=== PATIENT | male | born 1940 | race Caucasian/White ===

== ENCOUNTER 2016-09-14 12:20 | Inpatient (IN) | payer MEDICARE, OTHER ==
[~2016-09-14] VITALS: Ht 175.3 cm; Wt 86.6 kg
[~2016-09-14 12:20] MED LIST: AMIO200T PO; BLOO-129 IN; CARV12.52 PO; CHOL4PAC4 PO; ESCI10TA PO; FINA5TAB11 PO; FURO40TA5 PO; GLIM1TAB2 PO; HYDR-548 PO; LACT10SO PO; METO2.5T2 PO; METR500T PO; MODA200T30 PO; SPIR100T3 PO; TAMS0.4C34 PO; TENO300T2 PO; TRAM50TA2 PO; VANC125C11 PO
[2016-09-14 12:42] LABS: BASOPHILS % (AUTO) 0.9 % (0.0-2.0); DIFF TOTAL % 100 %; EOSINOPHILS # (AUTO) 0.3 /CMM (0.0-0.7); EOSINOPHILS % (AUTO) 7.1 % (0.0-6.0); HEMATOCRIT 28 % (39-51); HEMOGLOBIN 9.8 g/dL (13.5-17.5); LYMPHOCYTES # (AUTO) 1.8 /CMM (0.8-4.8); LYMPHOCYTES % (AUTO) 48.7 % (20.0-44.0); MEAN CORPUSCULAR HEMOGLOBIN 35 PG (26.0-33.0); MEAN CORPUSCULAR HGB CONC 35 g/dl (31.0-36.0); MEAN CORPUSCULAR VOLUME 102 fL (80-96); MONOCYTES # (AUTO) 0.4 /CMM (0.1-1.30); MONOCYTES % (AUTO) 9.4 % (2.0-12.0); NEUTROPHILS # (AUTO) 1.3 /CMM (1.8-8.9); NEUTROPHILS % (AUTO) 33.9 % (43.0-81.0); PLATELET COUNT (AUTO) 65 /CMM (150-450); RED BLOOD CELL COUNT(AUTO) 2.79 MIL/uL (4.5-6.0); WHITE BLOOD COUNT (AUTO) 3.9 K/uL (4.3-11.0)
[2016-09-14 12:52] LABS: ANION GAP 10 (5-14); CALCIUM, SERUM 8.2 mg/dL (8.5-10.1); CARBON DIOXIDE 26 mmol/L (21-32); CHLORIDE 107 mmol/L (98-107); CREATININE 2.6 mg/dL (0.6-1.3); GLUCOSE 129 mg/dL (74-106); POTASSIUM 3.5 mmol/L (3.5-5.1); SODIUM SERUM 139 mmol/L (136-145); UREA NITROGEN, BLOOD 29 mg/dL (7-18)
[2016-09-14 12:55] LABS: INR 1.49 (0.87-1.13); PROTHROMBIN TIME 15.6 SECS (9.5-12.7)
[2016-09-14 12:57] LABS: ALANINE AMINOTRANSFERASE 17 U/L (12-78); ALBUMIN 1.7 g/dL (3.4-5.0); ASPARTATE AMINOTRANSFERASE 34 U/L (15-37); BILIRUBIN,DIRECT 0.8 mg/dL (0.0-0.2); BILIRUBIN,TOTAL 1.6 mg/dL (0.2-1.0); INDIRECT BILIRUBIN 0.8 mg/dL (0.0-1.1); TOTAL PROTEIN, SERUM 6.7 g/dL (6.4-8.2)
[2016-09-14 13:00] LABS: TROPONIN I < 0.017 ng/mL (0.00-0.056)
[2016-09-14 13:15] LABS: LACTIC ACID 1.7 mmol/L (0.4-2.0)
[2016-09-14] MEDS ORDERED: FURO40TA5 PO ×2 (13:31→14:11)
[2016-09-14] MEDS ORDERED: PANT40TA2 PO (13:31)
[2016-09-14] MEDS ORDERED: LACT10SO29 PO (13:31)
[2016-09-14 14:04] LABS: ANISOCYTOSIS 2+; EOSINOPHILS % (MANUAL) 7 % (0-4); LYMPHOCYTES % (MANUAL) 40 % (16-48); PLATELET ESTIMATE DECREASED
[2016-09-14] MEDS ORDERED: SPIR100T PO (14:11)
[2016-09-14] MEDS ORDERED: ERGO50003 PO (14:11)
[2016-09-14] MEDS ORDERED: FOLI1TAB16 PO (14:11)
[2016-09-14] MEDS ORDERED: FERR-58 PO (14:11)
[2016-09-14] MEDS ORDERED: LUBI8CAP PO (14:11)
[2016-09-14] MEDS ORDERED: POTA8TAB3 PO (14:11)
[2016-09-14] MEDS ORDERED: FLUT1DIS3 INH (14:11)
[2016-09-14] MEDS ORDERED: LAMI150T PO (14:11)
[2016-09-14] MEDS ORDERED: MAGN200T5 PO (14:11)
[2016-09-14] MEDS ORDERED: INSU3INS6 SQ (14:11)
[2016-09-14] MEDS ORDERED: FAMO20TA8 PO (14:11)
[2016-09-14] MEDS ORDERED: CARV3.122 PO (14:11)
[2016-09-14] MEDS ORDERED: TAMS0.4C34 PO (14:11)
[2016-09-14] MEDS ORDERED: AMIO200T2 PO (14:11)
[2016-09-14] MEDS ORDERED: DOCU-170 PO (14:11)
[2016-09-14] MEDS ORDERED: CALC600T20 PO (14:11)
[2016-09-14] MEDS ORDERED: LEVO25TA9 PO (14:11)
[2016-09-14] MEDS ORDERED: IV NS 0.9% 1,000 ML IV PRN (14:35)
[2016-09-14 15:00] VITALS: BP 122/66
[2016-09-14] MEDS ORDERED: Z GUARD REMEDY 2 OZ OINT TP PRN (15:00)
[2016-09-14] MEDS ORDERED: LACTULOSE 10 G/15 ML UDC (PYXIS) PO PRN (15:00)
[2016-09-14] MEDS ORDERED: ONDANSETRON HCL/PF 4 MG/2 ML VIAL IVP PRN (15:00)
[2016-09-14] MEDS: CARVEDILOL 3.125 MG TABLET PO SCH (17:00)
[2016-09-14] MEDS: FUROSEMIDE 40 MG TABLET PO SCH (17:00)
[2016-09-14] MEDS: LACTULOSE 10 G/15 ML UDC (PYXIS) PO SCH (17:00)
[2016-09-14] MEDS: FERROUS SULFATE (325 MG) 325 MG/TAB TABLET PO SCH (17:00)
[2016-09-14] MEDS: DOCUSATE SODIUM 100 MG CAPSULE PO SCH (17:00)
[2016-09-14] MEDS: FLUTICASONE/SALMETEROL DISKUS IH SCH (17:00)
[2016-09-14 20:00] VITALS: BP 95/51
[2016-09-14 20:28] VITALS: BP 95/51
[2016-09-14] MEDS: INSULIN DETEMIR 100 UNIT/ML CARTRIDGE SQ SCH (21:53)
[2016-09-15] MEDS: LACTULOSE 10 G/15 ML UDC (PYXIS) PO SCH ×5 (06:42→23:38)
[2016-09-15 08:00] VITALS: BP 101/60
[2016-09-15 08:07] LABS: BASOPHILS % (AUTO) 0.5 % (0.0-2.0); DIFF TOTAL % 100 %; EOSINOPHILS # (AUTO) 0.3 /CMM (0.0-0.7); EOSINOPHILS % (AUTO) 7.5 % (0.0-6.0); HEMATOCRIT 26 % (39-51); HEMOGLOBIN 8.6 g/dL (13.5-17.5); LYMPHOCYTES # (AUTO) 1.7 /CMM (0.8-4.8); LYMPHOCYTES % (AUTO) 46.5 % (20.0-44.0); MEAN CORPUSCULAR HEMOGLOBIN 34 PG (26.0-33.0); MEAN CORPUSCULAR HGB CONC 34 g/dl (31.0-36.0); MEAN CORPUSCULAR VOLUME 102 fL (80-96); MONOCYTES # (AUTO) 0.5 /CMM (0.1-1.30); MONOCYTES % (AUTO) 13.2 % (2.0-12.0); NEUTROPHILS # (AUTO) 1.2 /CMM (1.8-8.9); NEUTROPHILS % (AUTO) 32.3 % (43.0-81.0); PLATELET COUNT (AUTO) 64 /CMM (150-450); RED BLOOD CELL COUNT(AUTO) 2.51 MIL/uL (4.5-6.0); WHITE BLOOD COUNT (AUTO) 3.7 K/uL (4.3-11.0)
[2016-09-15 08:34] LABS: THYROID STIMULATING HORMONE 2.837 uIU/mL (0.358-3.74)
[2016-09-15 08:56] LABS: ALBUMIN 1.5 g/dL (3.4-5.0); BILIRUBIN,TOTAL 1.5 mg/dL (0.2-1.0); CALCIUM, SERUM 7.9 mg/dL (8.5-10.1); CREATININE 2.5 mg/dL (0.6-1.3); PHOSPHORUS 2.9 mg/dL (2.5-4.9); POTASSIUM 3.3 mmol/L (3.5-5.1)
[2016-09-15] MEDS: CARVEDILOL 3.125 MG TABLET PO SCH ×2 (09:00→17:22)
[2016-09-15] MEDS: FUROSEMIDE 40 MG TABLET PO SCH ×2 (09:00→17:22)
[2016-09-15] MEDS: FAMOTIDINE (20 MG) 20 MG TABLET PO SCH (09:31)
[2016-09-15] MEDS: DOCUSATE SODIUM 100 MG CAPSULE PO SCH ×2 (09:31→17:00)
[2016-09-15] MEDS: FLUTICASONE/SALMETEROL DISKUS IH SCH ×2 (09:31→17:21)
[2016-09-15] MEDS: TAMSULOSIN 0.4 MG CAP.SR.24H PO SCH (09:31)
[2016-09-15] MEDS: LEVOTHYROXINE SODIUM 25 MCG TABLET PO SCH (09:31)
[2016-09-15] MEDS: FERROUS SULFATE (325 MG) 325 MG/TAB TABLET PO SCH ×3 (09:31→17:21)
[2016-09-15] MEDS: LAMIVUDINE (150MG) 150 MG TABLET PO SCH (09:32)
[2016-09-15] MEDS: FOLIC ACID 1 MG TABLET PO SCH (09:32)
[2016-09-15] MEDS: AMIODARONE HCL 200 MG TABLET PO SCH (09:33)
[2016-09-15] MEDS: SPIRONOLACTONE 25 MG TABLET PO SCH (09:38)
[2016-09-15] MEDS ORDERED: NEUTRA PHOS 1 POWD.PACKET NG ONE (11:30)
[2016-09-15] MEDS ORDERED: Magnesium 1GM/D5W 100ML PREMIX 100 ML IV SCH (11:59)
[2016-09-15] MEDS ORDERED: POTASSIUM CHLORIDE 20 MEQ POWDER PACKET NG SCH (12:00)
[2016-09-15 12:29] LABS: HIV-1 p24 ANTIGEN NON REACTIVE (NONREACTIVE); HIV-1/2 ANTIBODY NON REACTIVE (NONREACTIVE)
[2016-09-15] MEDS ORDERED: IV SET PRIMARY PUMP SET 1 EA INFUS.SET MC ONE ×2 (12:47→17:07)
[2016-09-15 16:00] VITALS: BP 102/72
[2016-09-15 16:06] LABS: CREATININE, URINE 164.5 MG/DL (30.0-125.0)
[2016-09-15 16:19] LABS: KETONES,URINE NEGATIVE (NEGATIVE); LEUKOCYTE ESTERASE ,URINE NEGATIVE (NEGATIVE); PH,URINE 5.5 (5.0-8.0)
[2016-09-15 16:21] LABS: ADD UA MICROSCOPIC YES
[2016-09-15 16:28] LABS: ADD URINE CULTURE NO; RBC,URINE 0-2 /HPF (0-2); WBC,URINE 0-2 /HPF (0-3)
[2016-09-15] MEDS: ALBUMIN 25% 25 GM in PREMIX 1 EA IV SCH ×2 (17:20→23:36)
[2016-09-15 20:00] VITALS: BP 98/52
[2016-09-15] MEDS: INSULIN DETEMIR 100 UNIT/ML CARTRIDGE SQ SCH (22:54)
[2016-09-16] MEDS: ALBUMIN 25% 25 GM in PREMIX 1 EA IV SCH ×2 (05:43→11:42)
[2016-09-16] MEDS: LACTULOSE 10 G/15 ML UDC (PYXIS) PO SCH ×3 (05:43→17:46)
[2016-09-16 07:13] LABS: CALCIUM, SERUM 8.1 mg/dL (8.5-10.1); CREATININE 2.1 mg/dL (0.6-1.3); POTASSIUM 3.3 mmol/L (3.5-5.1)
[2016-09-16 08:00] VITALS: BP 95/54
[2016-09-16] MEDS: DOCUSATE SODIUM 100 MG CAPSULE PO SCH ×2 (08:31→17:46)
[2016-09-16] MEDS: CARVEDILOL 3.125 MG TABLET PO SCH ×2 (08:32→17:00)
[2016-09-16] MEDS: FUROSEMIDE 40 MG TABLET PO SCH ×2 (08:33→17:47)
[2016-09-16] MEDS: FERROUS SULFATE (325 MG) 325 MG/TAB TABLET PO SCH ×3 (08:33→17:46)
[2016-09-16] MEDS: TAMSULOSIN 0.4 MG CAP.SR.24H PO SCH (08:33)
[2016-09-16] MEDS: LEVOTHYROXINE SODIUM 25 MCG TABLET PO SCH (08:33)
[2016-09-16] MEDS: FAMOTIDINE (20 MG) 20 MG TABLET PO SCH (08:33)
[2016-09-16] MEDS: FOLIC ACID 1 MG TABLET PO SCH (08:33)
[2016-09-16] MEDS: SPIRONOLACTONE 25 MG TABLET PO SCH (08:34)
[2016-09-16] MEDS: AMIODARONE HCL 200 MG TABLET PO SCH (08:34)
[2016-09-16] MEDS: LAMIVUDINE (150MG) 150 MG TABLET PO SCH (08:36)
[2016-09-16] MEDS: FLUTICASONE/SALMETEROL DISKUS IH SCH ×2 (08:37→17:00)
[2016-09-16] MEDS ORDERED: POTASSIUM CHLORIDE 10 MEQ TABLET.SA PO ONE (11:30)
[2016-09-16 16:00] VITALS: BP 107/47
[2016-09-16] MEDS: ACETAMINOPHEN 325 MG TABLET PO PRN (16:51)
[2016-09-16] MEDS ORDERED: FEE PK DOSING 1 MIN EA MC ONE (18:42)
[2016-09-16 20:00] VITALS: BP 88/48
[2016-09-16] MEDS ORDERED: IV NS 0.9% 250 ML IV ONE (20:21)
[2016-09-16] MEDS ORDERED: SECONDARY IV SET 1 EA INFUS.SET MC ONE ×2 (20:21→21:18)
[2016-09-16] MEDS ORDERED: IV SET PRIMARY PUMP SET 1 EA INFUS.SET MC ONE (20:21)
[2016-09-16] MEDS: MEROPENEM 500 MG in IV NS 0.9% 50 ML IV SCH (20:32)
[2016-09-16 20:59] LABS: APPEARANCE,UNSPUN,BODY FLUID CLEAR (CLEAR); COLOR,BODY FLUID LT YELLOW (LT YELLOW)
[2016-09-16 21:00] LABS: WBC, BODY FLUID 49 /cu. mm. (0-200)
[2016-09-16] MEDS ORDERED: MUPIROCIN OINT 2% 22 GM TUBE SCH (21:00)
[2016-09-16 21:01] LABS: RBC, BODY FLUID 1000 /cu. mm. (0-2000)
[2016-09-16 21:02] LABS: POLYNUCLEAR, BODY FLUID 1 % (0-25)
[2016-09-16] MEDS: VANCOMYCIN 1 GM in IV D5W 250 ML IV SCH (21:30)
[2016-09-16] MEDS: MUPIROCIN OINT 2% 22 GM TUBE SCH (21:30)
[2016-09-16] MEDS: INSULIN DETEMIR 100 UNIT/ML CARTRIDGE SQ SCH (22:00)
[2016-09-17] MEDS: LEVOTHYROXINE SODIUM 25 MCG TABLET PO SCH (07:03)
[2016-09-17] MEDS: LACTULOSE 10 G/15 ML UDC (PYXIS) PO SCH ×5 (07:03→23:41)
[2016-09-17 07:08] VITALS: BP 97/48
[2016-09-17] MEDS: MEROPENEM 500 MG in IV NS 0.9% 50 ML IV SCH ×2 (08:38→20:01)
[2016-09-17] MEDS: FAMOTIDINE (20 MG) 20 MG TABLET PO SCH (08:39)
[2016-09-17] MEDS: LAMIVUDINE (150MG) 150 MG TABLET PO SCH (08:39)
[2016-09-17] MEDS: FOLIC ACID 1 MG TABLET PO SCH (08:39)
[2016-09-17] MEDS: DOCUSATE SODIUM 100 MG CAPSULE PO SCH ×2 (08:39→17:40)
[2016-09-17] MEDS: FERROUS SULFATE (325 MG) 325 MG/TAB TABLET PO SCH ×3 (08:39→17:40)
[2016-09-17] MEDS: FUROSEMIDE 40 MG TABLET PO SCH (08:39)
[2016-09-17] MEDS: SPIRONOLACTONE 25 MG TABLET PO SCH (08:39)
[2016-09-17] MEDS: TAMSULOSIN 0.4 MG CAP.SR.24H PO SCH (08:39)
[2016-09-17] MEDS: AMIODARONE HCL 200 MG TABLET PO SCH (08:40)
[2016-09-17] MEDS: FLUTICASONE/SALMETEROL DISKUS IH SCH ×2 (08:42→17:40)
[2016-09-17] MEDS: MUPIROCIN OINT 2% 22 GM TUBE SCH ×2 (08:59→20:01)
[2016-09-17] MEDS: CARVEDILOL 3.125 MG TABLET PO SCH ×2 (09:00→16:44)
[2016-09-17] MEDS ORDERED: POTASSIUM CHLORIDE 20 MEQ TAB.PRT.SR PO SCH (10:00)
[2016-09-17 10:43] LABS: CALCIUM, SERUM 8.4 mg/dL (8.5-10.1); CREATININE 2.7 mg/dL (0.6-1.3); POTASSIUM 3.5 mmol/L (3.5-5.1)
[2016-09-17 10:51] LABS: BASOPHILS % (AUTO) 0.2 % (0.0-2.0); DIFF TOTAL % 100 %; EOSINOPHILS % (AUTO) 0.6 % (0.0-6.0); HEMATOCRIT 26 % (39-51); HEMOGLOBIN 8.7 g/dL (13.5-17.5); LYMPHOCYTES # (AUTO) 1.5 /CMM (0.8-4.8); LYMPHOCYTES % (AUTO) 22.1 % (20.0-44.0); MEAN CORPUSCULAR HEMOGLOBIN 34 PG (26.0-33.0); MEAN CORPUSCULAR HGB CONC 33 g/dl (31.0-36.0); MEAN CORPUSCULAR VOLUME 103 fL (80-96); MONOCYTES # (AUTO) 0.6 /CMM (0.1-1.30); MONOCYTES % (AUTO) 8.9 % (2.0-12.0); NEUTROPHILS # (AUTO) 4.5 /CMM (1.8-8.9); NEUTROPHILS % (AUTO) 68.2 % (43.0-81.0); RED BLOOD CELL COUNT(AUTO) 2.55 MIL/uL (4.5-6.0); WHITE BLOOD COUNT (AUTO) 6.6 K/uL (4.3-11.0)
[2016-09-17 10:55] LABS: LACTIC ACID 3.5 mmol/L (0.4-2.0)
[2016-09-17 11:05] LABS: PLATELET COUNT (AUTO) 44 /CMM (150-450)
[2016-09-17 11:18] LABS: *LACTIC ACID REFLEX FLAG YES
[2016-09-17 11:25] LABS: BAND % (MANUAL) 4 % (0.0-5.0); EOSINOPHILS % (MANUAL) 2 % (0-4); LYMPHOCYTES % (MANUAL) 27 % (16-48)
[2016-09-17 11:26] LABS: MICROCYTOSIS 1+; PLATELET ESTIMATE DECREASED
[2016-09-17 14:40] LABS: BILIRUBIN,DIRECT 0.7 mg/dL (0.0-0.2); BILIRUBIN,TOTAL 2.3 mg/dL (0.2-1.0)
[2016-09-17 15:34] LABS: ALBUMIN 2.3 g/dL (3.4-5.0)
[2016-09-17 20:00] VITALS: BP 88/44
[2016-09-17 20:13] VITALS: BP 88/44
[2016-09-17] MEDS: VANCOMYCIN 1 GM in IV D5W 250 ML IV SCH (20:30)
[2016-09-17] MEDS: INSULIN DETEMIR 100 UNIT/ML CARTRIDGE SQ SCH (20:36)
[2016-09-18] MEDS: LACTULOSE 10 G/15 ML UDC (PYXIS) PO SCH ×5 (05:28→23:57)
[2016-09-18 08:00] VITALS: BP 103/54
[2016-09-18] MEDS: FOLIC ACID 1 MG TABLET PO SCH (08:39)
[2016-09-18] MEDS: LEVOTHYROXINE SODIUM 25 MCG TABLET PO SCH (08:39)
[2016-09-18] MEDS: FAMOTIDINE (20 MG) 20 MG TABLET PO SCH (08:39)
[2016-09-18] MEDS: DOCUSATE SODIUM 100 MG CAPSULE PO SCH ×2 (08:39→16:33)
[2016-09-18] MEDS: FERROUS SULFATE (325 MG) 325 MG/TAB TABLET PO SCH ×3 (08:39→16:33)
[2016-09-18] MEDS: AMIODARONE HCL 200 MG TABLET PO SCH (08:41)
[2016-09-18] MEDS: CARVEDILOL 3.125 MG TABLET PO SCH ×2 (08:42→16:33)
[2016-09-18] MEDS: FLUTICASONE/SALMETEROL DISKUS IH SCH ×2 (08:42→16:32)
[2016-09-18] MEDS: LAMIVUDINE (150MG) 150 MG TABLET PO SCH (08:42)
[2016-09-18] MEDS: MEROPENEM 500 MG in IV NS 0.9% 50 ML IV SCH (08:43)
[2016-09-18] MEDS: TAMSULOSIN 0.4 MG CAP.SR.24H PO SCH (08:45)
[2016-09-18] MEDS: MUPIROCIN OINT 2% 22 GM TUBE SCH ×2 (08:56→20:55)
[2016-09-18] MEDS ORDERED: ERGOCALCIFEROL (VITAMIN D 2) 50,000 UNIT CAPSULE PO SCH (09:29)
[2016-09-18 10:37] LABS: BASOPHILS % (AUTO) 0.2 % (0.0-2.0); DIFF TOTAL % 100 %; EOSINOPHILS # (AUTO) 0.1 /CMM (0.0-0.7); EOSINOPHILS % (AUTO) 0.8 % (0.0-6.0); HEMATOCRIT 23 % (39-51); HEMOGLOBIN 7.7 g/dL (13.5-17.5); LYMPHOCYTES # (AUTO) 1.9 /CMM (0.8-4.8); LYMPHOCYTES % (AUTO) 27.8 % (20.0-44.0); MEAN CORPUSCULAR HEMOGLOBIN 34 PG (26.0-33.0); MEAN CORPUSCULAR HGB CONC 33 g/dl (31.0-36.0); MEAN CORPUSCULAR VOLUME 103 fL (80-96); MONOCYTES # (AUTO) 0.8 /CMM (0.1-1.30); MONOCYTES % (AUTO) 11.3 % (2.0-12.0); NEUTROPHILS # (AUTO) 4.1 /CMM (1.8-8.9); NEUTROPHILS % (AUTO) 59.9 % (43.0-81.0); RED BLOOD CELL COUNT(AUTO) 2.28 MIL/uL (4.5-6.0); WHITE BLOOD COUNT (AUTO) 6.8 K/uL (4.3-11.0)
[2016-09-18 10:47] LABS: CALCIUM, SERUM 8.2 mg/dL (8.5-10.1); CREATININE 2.6 mg/dL (0.6-1.3); POTASSIUM 3.7 mmol/L (3.5-5.1)
[2016-09-18 11:07] LABS: PLATELET COUNT (AUTO) 40 /CMM (150-450)
[2016-09-18 12:41] LABS: ANISOCYTOSIS 1+; EOSINOPHILS % (MANUAL) 1 % (0-4); LYMPHOCYTES % (MANUAL) 20 % (16-48); PLATELET ESTIMATE DECREASED
[2016-09-18 12:42] LABS: HYPOCHROMASIA 1+
[2016-09-18 16:00] VITALS: BP 114/67
[2016-09-18] MEDS: VANCOMYCIN 1 GM in IV D5W 250 ML IV SCH (19:58)
[2016-09-18 20:00] VITALS: BP 90/50
[2016-09-18] MEDS: INSULIN DETEMIR 100 UNIT/ML CARTRIDGE SQ SCH (21:01)
[2016-09-18 21:24] VITALS: BP 90/58
[2016-09-19] MEDS: LACTULOSE 10 G/15 ML UDC (PYXIS) PO SCH ×3 (05:23→17:02)
[2016-09-19] MEDS: LEVOTHYROXINE SODIUM 25 MCG TABLET PO SCH (07:30)
[2016-09-19 08:00] VITALS: BP 90/58
[2016-09-19] MEDS: MUPIROCIN OINT 2% 22 GM TUBE SCH ×2 (09:00→20:10)
[2016-09-19] MEDS: DOCUSATE SODIUM 100 MG CAPSULE PO SCH ×2 (09:00→17:02)
[2016-09-19] MEDS: CARVEDILOL 3.125 MG TABLET PO SCH ×2 (09:00→17:00)
[2016-09-19] MEDS: FOLIC ACID 1 MG TABLET PO SCH (09:00)
[2016-09-19] MEDS: FAMOTIDINE (20 MG) 20 MG TABLET PO SCH (09:00)
[2016-09-19] MEDS: LAMIVUDINE (150MG) 150 MG TABLET PO SCH (09:00)
[2016-09-19] MEDS: TAMSULOSIN 0.4 MG CAP.SR.24H PO SCH (09:00)
[2016-09-19] MEDS: AMIODARONE HCL 200 MG TABLET PO SCH (09:00)
[2016-09-19] MEDS: FLUTICASONE/SALMETEROL DISKUS IH SCH ×2 (09:00→17:03)
[2016-09-19] MEDS: FERROUS SULFATE (325 MG) 325 MG/TAB TABLET PO SCH ×3 (09:00→17:02)
[2016-09-19 15:39] LABS: ALBUMIN 1.7 g/dL (3.4-5.0); BILIRUBIN,TOTAL 2.9 mg/dL (0.2-1.0); CREATININE 2.3 mg/dL (0.6-1.3); POTASSIUM 3.7 mmol/L (3.5-5.1); TOTAL PROTEIN, SERUM 5.3 g/dL (6.4-8.2)
[2016-09-19 15:43] LABS: BASOPHILS % (AUTO) 0.5 % (0.0-2.0); DIFF TOTAL % 100 %; EOSINOPHILS # (AUTO) 0.1 /CMM (0.0-0.7); EOSINOPHILS % (AUTO) 1.7 % (0.0-6.0); HEMATOCRIT 24 % (39-51); HEMOGLOBIN 7.9 g/dL (13.5-17.5); LYMPHOCYTES # (AUTO) 2.5 /CMM (0.8-4.8); MEAN CORPUSCULAR HEMOGLOBIN 34 PG (26.0-33.0); MEAN CORPUSCULAR HGB CONC 34 g/dl (31.0-36.0); MEAN CORPUSCULAR VOLUME 102 fL (80-96); MONOCYTES # (AUTO) 0.7 /CMM (0.1-1.30); MONOCYTES % (AUTO) 10.6 % (2.0-12.0); NEUTROPHILS # (AUTO) 3.6 /CMM (1.8-8.9); NEUTROPHILS % (AUTO) 51.2 % (43.0-81.0); PLATELET COUNT (AUTO) 55 /CMM (150-450); RED BLOOD CELL COUNT(AUTO) 2.33 MIL/uL (4.5-6.0)
[2016-09-19 16:00] VITALS: BP 99/65
[2016-09-19 16:04] VITALS: BP 99/65
[2016-09-19 18:18] LABS: ANISOCYTOSIS 1+; EOSINOPHILS % (MANUAL) 1 % (0-4); LYMPHOCYTES % (MANUAL) 19 % (16-48); PLATELET ESTIMATE DECREASED; POIKILOCYTOSIS RARE
[2016-09-19 18:19] LABS: BURR CELLS RARE; MICROCYTOSIS 1+; OVALOCYTES RARE; ROULEAUX RARE
[2016-09-19 20:00] VITALS: BP 103/60
[2016-09-19] MEDS: VANCOMYCIN 1 GM in IV D5W 250 ML IV SCH (20:09)
[2016-09-19] MEDS ORDERED: IV SET PRIMARY PUMP SET 1 EA INFUS.SET MC ONE (20:11)
[2016-09-19] MEDS: ACETAMINOPHEN 325 MG TABLET PO PRN (20:17)
[2016-09-19] MEDS: INSULIN DETEMIR 100 UNIT/ML CARTRIDGE SQ SCH (22:00)
[2016-09-20] MEDS ORDERED: HYDROCODONE/APAP 5/325MG 1 EACH TABLET ONE (00:46)
[2016-09-20] MEDS: HYDROCODONE/APAP 5/325MG 1 EACH TABLET PO PRN (00:50)
[2016-09-20] MEDS: LACTULOSE 10 G/15 ML UDC (PYXIS) PO SCH ×4 (06:00→16:28)
[2016-09-20 06:35] LABS: BASOPHILS % (AUTO) 0.4 % (0.0-2.0); DIFF TOTAL % 100 %; EOSINOPHILS # (AUTO) 0.2 /CMM (0.0-0.7); EOSINOPHILS % (AUTO) 3.3 % (0.0-6.0); HEMATOCRIT 23 % (39-51); HEMOGLOBIN 7.8 g/dL (13.5-17.5); LYMPHOCYTES # (AUTO) 1.6 /CMM (0.8-4.8); LYMPHOCYTES % (AUTO) 33.8 % (20.0-44.0); MEAN CORPUSCULAR HEMOGLOBIN 34 PG (26.0-33.0); MEAN CORPUSCULAR HGB CONC 33 g/dl (31.0-36.0); MEAN CORPUSCULAR VOLUME 102 fL (80-96); MONOCYTES # (AUTO) 0.5 /CMM (0.1-1.30); MONOCYTES % (AUTO) 11.8 % (2.0-12.0); NEUTROPHILS # (AUTO) 2.4 /CMM (1.8-8.9); NEUTROPHILS % (AUTO) 50.7 % (43.0-81.0); RED BLOOD CELL COUNT(AUTO) 2.27 MIL/uL (4.5-6.0); WHITE BLOOD COUNT (AUTO) 4.6 K/uL (4.3-11.0)
[2016-09-20 07:07] LABS: CALCIUM, SERUM 8.1 mg/dL (8.5-10.1); CREATININE 2.5 mg/dL (0.6-1.3); PHOSPHORUS 3.2 mg/dL (2.5-4.9); POTASSIUM 4.1 mmol/L (3.5-5.1)
[2016-09-20 08:00] VITALS: BP 92/52
[2016-09-20 08:12] LABS: PLATELET COUNT (AUTO) 46 /CMM (150-450)
[2016-09-20 08:16] LABS: ANISOCYTOSIS 1+; BAND % (MANUAL) 1 % (0.0-5.0); EOSINOPHILS % (MANUAL) 4 % (0-4); LYMPHOCYTES % (MANUAL) 21 % (16-48); PLATELET ESTIMATE DECREASED
[2016-09-20] MEDS: FOLIC ACID 1 MG TABLET PO SCH (08:39)
[2016-09-20] MEDS: LEVOTHYROXINE SODIUM 25 MCG TABLET PO SCH (08:39)
[2016-09-20] MEDS: FERROUS SULFATE (325 MG) 325 MG/TAB TABLET PO SCH ×3 (08:39→16:28)
[2016-09-20] MEDS: TAMSULOSIN 0.4 MG CAP.SR.24H PO SCH (08:40)
[2016-09-20] MEDS: DOCUSATE SODIUM 100 MG CAPSULE PO SCH ×2 (08:40→16:28)
[2016-09-20] MEDS: FAMOTIDINE (20 MG) 20 MG TABLET PO SCH (08:40)
[2016-09-20] MEDS: LAMIVUDINE (150MG) 150 MG TABLET PO SCH (08:41)
[2016-09-20] MEDS: FLUTICASONE/SALMETEROL DISKUS IH SCH ×2 (08:44→16:36)
[2016-09-20] MEDS: MUPIROCIN OINT 2% 22 GM TUBE SCH ×2 (08:45→20:38)
[2016-09-20] MEDS: AMIODARONE HCL 200 MG TABLET PO SCH (09:00)
[2016-09-20] MEDS: CARVEDILOL 3.125 MG TABLET PO SCH ×2 (09:00→16:36)
[2016-09-20 16:00] VITALS: BP 98/56
[2016-09-20 20:00] VITALS: BP 98/52
[2016-09-20] MEDS: VANCOMYCIN 1 GM in IV D5W 250 ML IV SCH (20:38)
[2016-09-20] MEDS: INSULIN DETEMIR 100 UNIT/ML CARTRIDGE SQ SCH (22:00)
[2016-09-21] MEDS: LACTULOSE 10 G/15 ML UDC (PYXIS) PO SCH ×4 (06:00→17:44)
[2016-09-21 08:00] VITALS: BP_SYST 112; BP_SYST 91; BP_DIAS 51; BP_DIAS 60
[2016-09-21] MEDS: LEVOTHYROXINE SODIUM 25 MCG TABLET PO SCH (08:10)
[2016-09-21] MEDS: FAMOTIDINE (20 MG) 20 MG TABLET PO SCH (08:10)
[2016-09-21] MEDS: FOLIC ACID 1 MG TABLET PO SCH (08:11)
[2016-09-21] MEDS: LAMIVUDINE (150MG) 150 MG TABLET PO SCH (08:11)
[2016-09-21] MEDS: FERROUS SULFATE (325 MG) 325 MG/TAB TABLET PO SCH ×3 (08:11→17:43)
[2016-09-21] MEDS: DOCUSATE SODIUM 100 MG CAPSULE PO SCH ×2 (08:11→17:43)
[2016-09-21] MEDS: TAMSULOSIN 0.4 MG CAP.SR.24H PO SCH (08:11)
[2016-09-21] MEDS: FLUTICASONE/SALMETEROL DISKUS IH SCH ×2 (08:12→17:00)
[2016-09-21] MEDS: MUPIROCIN OINT 2% 22 GM TUBE SCH ×2 (08:13→20:41)
[2016-09-21] MEDS: CARVEDILOL 3.125 MG TABLET PO SCH ×2 (08:17→17:00)
[2016-09-21] MEDS: AMIODARONE HCL 200 MG TABLET PO SCH (08:18)
[2016-09-21] MEDS: HYDROCODONE/APAP 5/325MG 1 EACH TABLET PO PRN ×2 (12:19→20:55)
[2016-09-21 16:00] VITALS: BP 91/51
[2016-09-21] MEDS: VANCOMYCIN 1 GM in IV D5W 250 ML IV SCH (20:40)
[2016-09-21 20:57] VITALS: BP 144/75
[2016-09-21 21:33] VITALS: BP 144/75
[2016-09-21] MEDS: INSULIN DETEMIR 100 UNIT/ML CARTRIDGE SQ SCH (22:00)
[2016-09-22] MEDS: LACTULOSE 10 G/15 ML UDC (PYXIS) PO SCH ×4 (06:08→18:09)
[2016-09-22 08:00] VITALS: BP 101/56
[2016-09-22] MEDS: LEVOTHYROXINE SODIUM 25 MCG TABLET PO SCH (08:24)
[2016-09-22] MEDS: MUPIROCIN OINT 2% 22 GM TUBE SCH (08:25)
[2016-09-22] MEDS: TAMSULOSIN 0.4 MG CAP.SR.24H PO SCH (08:25)
[2016-09-22] MEDS: AMIODARONE HCL 200 MG TABLET PO SCH (08:25)
[2016-09-22] MEDS: FLUTICASONE/SALMETEROL DISKUS IH SCH ×2 (08:26→18:09)
[2016-09-22] MEDS: DOCUSATE SODIUM 100 MG CAPSULE PO SCH ×2 (08:26→18:09)
[2016-09-22] MEDS: CARVEDILOL 3.125 MG TABLET PO SCH ×2 (08:26→18:10)
[2016-09-22] MEDS: FAMOTIDINE (20 MG) 20 MG TABLET PO SCH (08:27)
[2016-09-22] MEDS: FOLIC ACID 1 MG TABLET PO SCH (08:27)
[2016-09-22] MEDS: FERROUS SULFATE (325 MG) 325 MG/TAB TABLET PO SCH ×3 (08:27→18:09)
[2016-09-22] MEDS: LAMIVUDINE (150MG) 150 MG TABLET PO SCH (08:30)
[2016-09-22] MEDS ORDERED: VANC500V GT (11:47)
[2016-09-22] MEDS: VANCOMYCIN 1 GM in IV D5W 250 ML IV SCH (19:35)
[2016-09-22 20:00] VITALS: BP 111/47
== END 2016-09-22 21:14 | disposition home health service (06) | DRG 871 ==
LOC: ER 12:24 → MED 14:19
PROVIDERS: ADMIT Nurse Practitioner Acute Care; ATTEND Nurse Practitioner Acute Care
PROC: 0W9G3ZX Drainage of Peritoneal Cavity, Percutaneous Approach, Diagnostic (ICD-10-PCS; principal; 2016-09-15)
PROC: 05H633Z Insertion of Infusion Device into Left Subclavian Vein, Percutaneous Approach (ICD-10-PCS; 2016-09-22)
DX: A41.02 Sepsis due to Methicillin resistant Staphylococcus aureus (principal); N17.0 Acute kidney failure with tubular necrosis; E43 Unspecified severe protein-calorie malnutrition; K72.00 Acute and subacute hepatic failure without coma; G93.41 Metabolic encephalopathy; K76.7 Hepatorenal syndrome; R18.8 Other ascites; D68.59 Other primary thrombophilia; D61.818 Other pancytopenia; E44.0 Moderate protein-calorie malnutrition; K72.90 Hepatic failure, unspecified without coma; K74.60 Unspecified cirrhosis of liver; D50.9 Iron deficiency anemia, unspecified; E11.65 Type 2 diabetes mellitus with hyperglycemia; E11.22 Type 2 diabetes mellitus with diabetic chronic kidney disease; I12.9 Hypertensive chronic kidney disease with stage 1 through stage 4 chronic kidney disease, or unspecified chronic kidney disease; N18.9 Chronic kidney disease, unspecified; R65.20 Severe sepsis without septic shock; Z68.29 Body mass index [BMI] 29.0-29.9, adult; M79.606 Pain in leg, unspecified; K72.10 Chronic hepatic failure without coma; I25.10 Atherosclerotic heart disease of native coronary artery without angina pectoris; E78.5 Hyperlipidemia, unspecified; K21.9 Gastro-esophageal reflux disease without esophagitis; E03.9 Hypothyroidism, unspecified; F17.210 Nicotine dependence, cigarettes, uncomplicated; D72.1 Eosinophilia; E83.51 Hypocalcemia; E87.6 Hypokalemia; D53.9 Nutritional anemia, unspecified; E83.41 Hypermagnesemia
CPT/HCPCS: 36415; 71010-TC; 76700-TC; 76942-TC; 80048-TC; 80053-TC; 80061-TC; 80076-TC; 80202-TC; 81000-TC; 82040-TC; 82140-TC; 82247-TC; 82248-TC; 82272-TC; 82570-TC; 82962-TC; 83605-TC; 83690-TC; 83735-TC; 84100-TC; 84300-TC; 84443-TC; 84484-TC; 85025-TC; 85730-TC; 86803; 87040-TC; 87070-TC; 87081-TC; 87086-TC; 89051-TC; 92521; 93307-TC; 94799-TC; 97001-TC; 97003-TC; 97116-TC; 97530-TC; A4216; A4606; A6402; J1815; J2185; J2405; J3370; J3475; J7050; J7060; P9047; Z7610